=== PATIENT | female | born 1985 | race Caucasian/White ===

== ENCOUNTER 2016-07-16 18:25 | Outpatient (CLI) | payer OTHER ==
[~2016-07-16 18:25] MED LIST: ADVIL100 MG PO; BUPROBAN150 MG PO; CIPRO500 MG PO; DIAZEPAM10 MG PO; IBUPROFEN800 MG PO; LABETALOL HCL200 MG PO; LISINOPRIL-HCT1 EACH PO; LO-DOSE ASPIRIN81 M2 PO; MACROBID100 MG PO; MICROGESTIN1 EACH PO; NAPROXEN500 MG PO; NIFEDIPINE ER30 MG PO; NORCO 5/3251 TABLET PO; PRENATAL TABLE1 EACH PO; PROCARDIA XL30 MG PO; TYLENOL EXTRA500 MG PO; ULTRAM50 MG PO
[2016-07-16 18:52] VITALS: BP 147/94
[2016-07-16 19:11] VITALS: BP 132/83
[2016-07-16 19:26] VITALS: BP 131/82
[2016-07-16 19:41] VITALS: BP 132/79
[2016-07-16 19:56] VITALS: BP 122/78
[2016-07-16 20:11] VITALS: BP 119/77
[2016-07-16 21:06] LABS: ALKALINE PHOSPHATASE 39 IU/L (3-129); ANION GAP 7 MEQ/L (2-14); CHLORIDE 106 MEQ/L (99-109); GFR ESTIMATE (CALCULATED) > 59 mL/min/; GLUCOSE 73 mg/dL (70-99); POTASSIUM 3.6 MEQ/L (3.7-5.4); SAMPLE HEMOLYSIS CHECK 0; SAMPLE ICTERIC CHECK 0; SAMPLE LIPEMIA CHECK 0; SODIUM 136 MEQ/L (136-147); TOTAL BILIRUBIN 0.2 MG/DL (0.0-1.0); UREA NITROGEN (BUN) 6 mg/dL (9-23)
[2016-07-16 21:07] LABS: EOSINOPHIL (%) 0.7 % (0-5); HEMATOCRIT 32.3 % (36.0-46.0); IMMATURE GRANULOCYTE (%) 0.2 % (0.0-0.7); LYMPHOCYTE COUNT 1.1 K/uL (1.0-2.8); MCH 29.1 PG (29.0-34.0); MCHC 33.4 G/DL (30.0-36.0); MCV 87.1 FL (83-99); MEAN PLAT.VOLUME 9.9 uM^3 (9.5-12.4); MONOCYTE (%) 7.6 % (3-12); MONOCYTE COUNT 0.3 K/uL (0-0.8); NEUTROPHIL (%) 66.7 % (45-76); NEUTROPHIL COUNT 2.9 K/uL (1.8-6.4); PLATELET COUNT 147 K/uL (156-360); RBC DIS.WIDTH-CV 13.6 % (11.8-14.6); RBC DIS.WIDTH-SD 43.2 % (39-53); RED BLOOD COUNT 3.71 M/uL (3.80-5.20); WHITE BLOOD COUNT 4.4 K/uL (4.1-10.2)
[2016-07-16 21:35] LABS: HEMATOLOGY COMMENT 1 SMEAR COMPATIBLE; PLAT.SUFFICIENCY DECREASED
[2016-07-16] MEDS ORDERED: FIORICET,ESG1 TABLET PO (22:07)
== END 2016-07-16 22:25 | disposition home or self-care (01) ==
LOC: LDRP-OP 18:25 → 2WEST 18:26 → LDRP-OP 11-11 23:17
PROVIDERS: Advanced Practice Midwife
DX: R51 Headache (principal); O99.89 Other specified diseases and conditions complicating pregnancy, childbirth and the puerperium; Z3A.27 27 weeks gestation of pregnancy
CPT/HCPCS: 59025; 80053; 82570; 84156; 85025; G0378

== ENCOUNTER 2016-08-10 08:41 | Outpatient (CLI) | payer OTHER ==
[~2016-08-10 08:41] MED LIST changes: +FIORICET,ESG1 TABLET PO
[2016-08-10 08:58] VITALS: BP 133/90
[2016-08-10 09:37] VITALS: BP 119/82
[2016-08-10 10:23] LABS: EOSINOPHIL (%) 0.6 % (0-5); HEMATOCRIT 33.9 % (36.0-46.0); IMMATURE GRANULOCYTE (%) 0.2 % (0.0-0.7); IMMATURE GRANULOCYTE COUNT 0.1 K/uL; LYMPHOCYTE COUNT 1.1 K/uL (1.0-2.8); MCH 29.8 PG (29.0-34.0); MCHC 34.2 G/DL (30.0-36.0); MCV 87.1 FL (83-99); MEAN PLAT.VOLUME 10.2 uM^3 (9.5-12.4); MONOCYTE (%) 7.8 % (3-12); MONOCYTE COUNT 0.4 K/uL (0-0.8); NEUTROPHIL (%) 68.7 % (45-76); NEUTROPHIL COUNT 3.3 K/uL (1.8-6.4); PLATELET COUNT 163 K/uL (156-360); RBC DIS.WIDTH-CV 13.5 % (11.8-14.6); RBC DIS.WIDTH-SD 42.2 % (39-53); RED BLOOD COUNT 3.89 M/uL (3.80-5.20); WHITE BLOOD COUNT 4.8 K/uL (4.1-10.2)
[2016-08-10 10:35] VITALS: BP 124/83
[2016-08-10 11:01] LABS: UR CREATININE CONCENTRATION 25.5 MG/DL
[2016-08-10 11:37] VITALS: BP 123/80
[2016-08-10 11:47] LABS: ALKALINE PHOSPHATASE 43 IU/L (3-129); ANION GAP 10 MEQ/L (2-14); CHLORIDE 105 MEQ/L (99-109); GFR ESTIMATE (CALCULATED) > 59 mL/min/; GLUCOSE 77 mg/dL (70-99); LACTATE DEHYDROGENASE 140 IU/L (20-246); POTASSIUM 3.8 MEQ/L (3.7-5.4); SAMPLE HEMOLYSIS CHECK 0; SAMPLE ICTERIC CHECK 0; SAMPLE LIPEMIA CHECK 0; SODIUM 137 MEQ/L (136-147); TOTAL BILIRUBIN 0.3 MG/DL (0.0-1.0); UREA NITROGEN (BUN) 6 mg/dL (9-23)
[2016-08-10 12:34] VITALS: BP 124/82
== END 2016-08-10 14:00 | disposition home or self-care (01) ==
LOC: LDRP-OP 08:41 → 2WEST 08:42 → LDRP-OP 11-11 23:11
PROVIDERS: Advanced Practice Midwife
DX: R51 Headache (principal); O99.89 Other specified diseases and conditions complicating pregnancy, childbirth and the puerperium; Z3A.31 31 weeks gestation of pregnancy
CPT/HCPCS: 59025; 80053; 82570; 83615; 84156; 84550; 85025; 87086; G0378

== ENCOUNTER 2016-09-04 11:14 | Outpatient (CLI) | payer OTHER ==
[2016-09-04 11:28] VITALS: BP 139/100
[2016-09-04 11:46] VITALS: BP 139/97
[2016-09-04 12:25] LABS: EOSINOPHIL (%) 0.9 % (0-5); HEMATOCRIT 34.2 % (36.0-46.0); LYMPHOCYTE COUNT 0.8 K/uL (1.0-2.8); MCH 28.4 PG (29.0-34.0); MCHC 32.7 G/DL (30.0-36.0); MCV 86.8 FL (83-99); MEAN PLAT.VOLUME 10.1 uM^3 (9.5-12.4); MONOCYTE (%) 8.9 % (3-12); MONOCYTE COUNT 0.4 K/uL (0-0.8); NEUTROPHIL (%) 72.5 % (45-76); NEUTROPHIL COUNT 3.4 K/uL (1.8-6.4); PLATELET COUNT 144 K/uL (156-360); RBC DIS.WIDTH-CV 13.5 % (11.8-14.6); RBC DIS.WIDTH-SD 43.1 % (39-53); RED BLOOD COUNT 3.94 M/uL (3.80-5.20); WHITE BLOOD COUNT 4.7 K/uL (4.1-10.2)
[2016-09-04 12:38] VITALS: BP 133/94
[2016-09-04 12:45] LABS: ANION GAP 7 MEQ/L (2-14); CHLORIDE 106 MEQ/L (99-109); POTASSIUM 3.7 MEQ/L (3.7-5.4); SAMPLE HEMOLYSIS CHECK 0; SAMPLE ICTERIC CHECK 0; SAMPLE LIPEMIA CHECK 0; SODIUM 137 MEQ/L (136-147); TOTAL BILIRUBIN 0.3 MG/DL (0.0-1.0)
[2016-09-04 12:50] LABS: ALKALINE PHOSPHATASE 51 IU/L (3-129); GFR ESTIMATE (CALCULATED) > 59 mL/min/; GLUCOSE 87 mg/dL (70-99); LACTATE DEHYDROGENASE 119 IU/L (20-246); UREA NITROGEN (BUN) 7 mg/dL (9-23); URIC ACID 2.8 mg/dL (3.1-9.2)
[2016-09-04 13:08] LABS: BILIRUBIN NEGATIVE; BLOOD NEGATIVE; COLOR YELLOW ((YELLOW)); GLUCOSE (STRIP) NEGATIVE; KETONES NEGATIVE; LEUKOCYTES NEGATIVE; NITRITE NEGATIVE; PROTEIN (STRIP) NEGATIVE; SPECIFIC GRAVITY 1.014 (1.000-1.030); UROBILINOGEN 0.2 MG/DL (0.2-1.0)
[2016-09-04 13:11] LABS: ADD MIUA? NO; UCUL ADDED? NO
[2016-09-04 14:14] VITALS: BP 121/80
[2016-09-04 15:45] VITALS: BP 121/78
[2016-09-04 18:45] LABS: CANDIDA DNA PROBE NEGATIVE; GARDNERELLA DNA PROBE NEGATIVE; INTERNAL CONTROL VALID? YES
== END 2016-09-04 17:05 | disposition home or self-care (01) ==
LOC: LDRP-OP 11:14 → 2WEST 11:15 → LDRP-OP 11-04 14:11
PROVIDERS: Advanced Practice Midwife
DX: O26.893 Other specified pregnancy related conditions, third trimester (principal); R55 Syncope and collapse; Z3A.34 34 weeks gestation of pregnancy
CPT/HCPCS: 59025; 80053; 81003; 82570; 83615; 84156; 84550; 85025; 87086; 87480; 87510; 87660; G0378; J7120

== ENCOUNTER 2016-09-16 16:18 | Outpatient (CLI) | payer OTHER ==
[2016-09-16] VITALS (7 sets, daily range): BP systolic 129–140; BP diastolic 78–96
[~2016-09-16] VITALS: Ht 154.9 cm; Wt 69.9 kg
[2016-09-16 17:23] LABS: EOSINOPHIL (%) 0.5 % (0-5); HEMATOCRIT 35.4 % (36.0-46.0); IMMATURE GRANULOCYTE (%) 0.3 % (0.0-0.7); INSTRUMENT ABS NEUTROPHIL CT 3.7 K/uL; LYMPHOCYTE COUNT 1.4 K/uL (1.0-2.8); MCH 29.6 PG (29.0-34.0); MCHC 33.9 G/DL (30.0-36.0); MCV 87.4 FL (83-99); MEAN PLAT.VOLUME 10.6 uM^3 (9.5-12.4); MONOCYTE (%) 10.1 % (3-12); MONOCYTE COUNT 0.6 K/uL (0-0.8); NEUTROPHIL (%) 63.8 % (45-76); NEUTROPHIL COUNT 3.7 K/uL (1.8-6.4); PLATELET COUNT 174 K/uL (156-360); RBC DIS.WIDTH-CV 13.2 % (11.8-14.6); RBC DIS.WIDTH-SD 42.1 % (39-53); RED BLOOD COUNT 4.05 M/uL (3.80-5.20); WHITE BLOOD COUNT 5.7 K/uL (4.1-10.2)
[2016-09-16 17:37] LABS: ADD MIUA? NO; BILIRUBIN NEGATIVE; BLOOD NEGATIVE; COLOR YELLOW ((YELLOW)); GLUCOSE (STRIP) 150; KETONES NEGATIVE; LEUKOCYTES NEGATIVE; NITRITE NEGATIVE; PROTEIN (STRIP) NEGATIVE; SPECIFIC GRAVITY 1.009 (1.000-1.030); UCUL ADDED? NO; UROBILINOGEN 0.2 MG/DL (0.2-1.0)
[2016-09-16 17:38] LABS: ANION GAP 9 MEQ/L (2-14); CHLORIDE 106 MEQ/L (99-109); POTASSIUM 3.6 MEQ/L (3.7-5.4); SAMPLE HEMOLYSIS CHECK 0; SAMPLE ICTERIC CHECK 0; SAMPLE LIPEMIA CHECK 0; SODIUM 136 MEQ/L (136-147); TOTAL BILIRUBIN 0.2 MG/DL (0.0-1.0)
[2016-09-16 17:43] LABS: ALKALINE PHOSPHATASE 63 IU/L (3-129); GFR ESTIMATE (CALCULATED) > 59 mL/min/; GLUCOSE 82 mg/dL (70-99); LACTATE DEHYDROGENASE 123 IU/L (20-246); UREA NITROGEN (BUN) 7 mg/dL (9-23); URIC ACID 2.8 mg/dL (3.1-9.2)
[2016-09-16 17:51] LABS: UR CREATININE CONCENTRATION 42.6 MG/DL
== END 2016-09-16 19:45 | disposition home or self-care (01) ==
LOC: LDRP-OP 16:18 → 2WEST 16:19 → LDRP-OP 11-04 17:39
PROVIDERS: Advanced Practice Midwife
DX: O13.3 Gestational [pregnancy-induced] hypertension without significant proteinuria, third trimester (principal); O14.03 Mild to moderate pre-eclampsia, third trimester; Z3A.36 36 weeks gestation of pregnancy
CPT/HCPCS: 59025; 80053; 81003; 82570; 83615; 84156; 84550; 85025; G0378

== ENCOUNTER 2016-09-18 08:01 | Outpatient (CLI) | payer OTHER ==
[2016-09-18 08:14] VITALS: BP 145/97
[2016-09-18 08:47] LABS: EOSINOPHIL (%) 0.7 % (0-5); HEMATOCRIT 35.7 % (36.0-46.0); IMMATURE GRANULOCYTE (%) 0.2 % (0.0-0.7); MCH 29.6 PG (29.0-34.0); MCHC 33.9 G/DL (30.0-36.0); MCV 87.3 FL (83-99); MEAN PLAT.VOLUME 10.4 uM^3 (9.5-12.4); MONOCYTE COUNT 0.4 K/uL (0-0.8); NEUTROPHIL (%) 66.8 % (45-76); PLATELET COUNT 149 K/uL (156-360); RBC DIS.WIDTH-CV 13.4 % (11.8-14.6); RBC DIS.WIDTH-SD 42.9 % (39-53); RED BLOOD COUNT 4.09 M/uL (3.80-5.20); WHITE BLOOD COUNT 4.5 K/uL (4.1-10.2)
[2016-09-18 08:54] VITALS: BP 130/87
[2016-09-18 09:31] VITALS: BP 131/87
[2016-09-18 09:50] LABS: UR CREATININE CONCENTRATION 107.6 MG/DL
[2016-09-18 12:01] LABS: ALKALINE PHOSPHATASE 66 IU/L (3-129); ANION GAP 8 MEQ/L (2-14); CHLORIDE 104 MEQ/L (99-109); GFR ESTIMATE (CALCULATED) > 59 mL/min/; GLUCOSE 83 mg/dL (70-99); LACTATE DEHYDROGENASE 123 IU/L (20-246); POTASSIUM 3.5 MEQ/L (3.7-5.4); SAMPLE HEMOLYSIS CHECK 0; SAMPLE ICTERIC CHECK 0; SAMPLE LIPEMIA CHECK 0; SODIUM 135 MEQ/L (136-147); UREA NITROGEN (BUN) 7 mg/dL (9-23); URIC ACID 3.3 mg/dL (3.1-9.2)
[2016-09-18 12:11] LABS: TOTAL BILIRUBIN 0.3 MG/DL (0.0-1.0)
[2016-09-18 12:47] VITALS: BP 153/89
[2016-09-18 15:06] VITALS: BP 143/89
== END 2016-09-18 17:10 | disposition home or self-care (01) ==
LOC: LDRP-OP 08:01 → 2WEST 08:02 → LDRP-OP 13:34 → 2WEST 17:10 → LDRP-OP 11-04 20:01
PROVIDERS: Advanced Practice Midwife
DX: O13.3 Gestational [pregnancy-induced] hypertension without significant proteinuria, third trimester (principal); O26.893 Other specified pregnancy related conditions, third trimester; R51 Headache; H43.399 Other vitreous opacities, unspecified eye; Z3A.36 36 weeks gestation of pregnancy
CPT/HCPCS: 59025; 76805; 76818; 80053; 80306 90; 81050; 82570; 83615; 84156; 84550; 85025; G0378; J7120

== ENCOUNTER 2016-09-23 06:50 | Inpatient (IN) | payer OTHER ==
[~2016-09-23] VITALS: Ht 154.9 cm; Wt 69.8 kg
[2016-09-23] VITALS (17 sets, daily range): BP systolic 118–160; BP diastolic 74–103
[2016-09-23 08:05] LABS: EOSINOPHIL (%) 0.8 % (0-5); HEMATOCRIT 34.8 % (36.0-46.0); IMMATURE GRANULOCYTE (%) 0.2 % (0.0-0.7); INSTRUMENT ABS NEUTROPHIL CT 3.3 K/uL; LYMPHOCYTE COUNT 1.1 K/uL (1.0-2.8); MCH 29.5 PG (29.0-34.0); MCHC 33.9 G/DL (30.0-36.0); MEAN PLAT.VOLUME 10.5 uM^3 (9.5-12.4); MONOCYTE (%) 8.1 % (3-12); MONOCYTE COUNT 0.4 K/uL (0-0.8); NEUTROPHIL (%) 67.8 % (45-76); NEUTROPHIL COUNT 3.3 K/uL (1.8-6.4); PLATELET COUNT 157 K/uL (156-360); RBC DIS.WIDTH-CV 13.3 % (11.8-14.6); RBC DIS.WIDTH-SD 42.4 % (39-53); WHITE BLOOD COUNT 4.8 K/uL (4.1-10.2)
[2016-09-23 08:28] LABS: ANION GAP 8 MEQ/L (2-14); CHLORIDE 105 MEQ/L (99-109); POTASSIUM 3.7 MEQ/L (3.7-5.4); SAMPLE HEMOLYSIS CHECK 0; SAMPLE ICTERIC CHECK 0; SAMPLE LIPEMIA CHECK 0; SODIUM 136 MEQ/L (136-147); TOTAL BILIRUBIN 0.3 MG/DL (0.0-1.0)
[2016-09-23 08:34] LABS: ALKALINE PHOSPHATASE 64 IU/L (3-129); GFR ESTIMATE (CALCULATED) > 59 mL/min/; GLUCOSE 85 mg/dL (70-99); UREA NITROGEN (BUN) 8 mg/dL (9-23)
[2016-09-23 08:47] LABS: POINT-OF-CARE METER ID UU13113801
[2016-09-23 12:06] LABS: UR CREATININE CONCENTRATION 81.8 MG/DL
[2016-09-24] VITALS (40 sets, daily range): BP systolic 118–150; BP diastolic 78–98
[2016-09-24 18:42] LABS: POINT-OF-CARE METER ID UU13113801
[2016-09-24 18:43] LABS: EOSINOPHIL (%) 0.2 % (0-5); HEMATOCRIT 30.7 % (36.0-46.0); IMMATURE GRANULOCYTE (%) 0.5 % (0.0-0.7); INSTRUMENT ABS NEUTROPHIL CT 4.7 K/uL; LYMPHOCYTE COUNT 1.1 K/uL (1.0-2.8); MCH 30.3 PG (29.0-34.0); MCHC 34.2 G/DL (30.0-36.0); MCV 88.5 FL (83-99); MEAN PLAT.VOLUME 10.1 uM^3 (9.5-12.4); MONOCYTE (%) 5.2 % (3-12); MONOCYTE COUNT 0.3 K/uL (0-0.8); NEUTROPHIL COUNT 4.7 K/uL (1.8-6.4); PLATELET COUNT 139 K/uL (156-360); RBC DIS.WIDTH-CV 13.3 % (11.8-14.6); RED BLOOD COUNT 3.47 M/uL (3.80-5.20); WHITE BLOOD COUNT 6.2 K/uL (4.1-10.2)
[2016-09-25] VITALS (7 sets, daily range): BP systolic 125–151; BP diastolic 65–97
[2016-09-25 06:49] LABS: EOSINOPHIL (%) 1.1 % (0-5); EOSINOPHIL COUNT 0.1 K/uL (0-0.3); HEMATOCRIT 24.5 % (36.0-46.0); IMMATURE GRANULOCYTE (%) 0.5 % (0.0-0.7); INSTRUMENT ABS NEUTROPHIL CT 3.1 K/uL; LYMPHOCYTE COUNT 0.9 K/uL (1.0-2.8); MCH 29.5 PG (29.0-34.0); MCHC 33.5 G/DL (30.0-36.0); MCV 88.1 FL (83-99); MEAN PLAT.VOLUME 10.8 uM^3 (9.5-12.4); MONOCYTE (%) 7.9 % (3-12); MONOCYTE COUNT 0.4 K/uL (0-0.8); NEUTROPHIL (%) 69.4 % (45-76); NEUTROPHIL COUNT 3.1 K/uL (1.8-6.4); PLATELET COUNT 131 K/uL (156-360); RBC DIS.WIDTH-CV 13.3 % (11.8-14.6); RBC DIS.WIDTH-SD 43.1 % (39-53); RED BLOOD COUNT 2.78 M/uL (3.80-5.20); WHITE BLOOD COUNT 4.4 K/uL (4.1-10.2)
[2016-09-25 16:18] LABS: EOSINOPHIL (%) 1.2 % (0-5); EOSINOPHIL COUNT 0.1 K/uL (0-0.3); HEMATOCRIT 28.6 % (36.0-46.0); IMMATURE GRANULOCYTE (%) 0.2 % (0.0-0.7); INSTRUMENT ABS NEUTROPHIL CT 2.8 K/uL; LYMPHOCYTE COUNT 1.1 K/uL (1.0-2.8); MCH 29.8 PG (29.0-34.0); MCHC 33.9 G/DL (30.0-36.0); MEAN PLAT.VOLUME 10.5 uM^3 (9.5-12.4); MONOCYTE (%) 6.8 % (3-12); MONOCYTE COUNT 0.3 K/uL (0-0.8); NEUTROPHIL (%) 66.2 % (45-76); NEUTROPHIL COUNT 2.8 K/uL (1.8-6.4); PLATELET COUNT 143 K/uL (156-360); RBC DIS.WIDTH-CV 13.3 % (11.8-14.6); RBC DIS.WIDTH-SD 42.8 % (39-53); RED BLOOD COUNT 3.25 M/uL (3.80-5.20); WHITE BLOOD COUNT 4.3 K/uL (4.1-10.2)
[2016-09-26 06:01] VITALS: BP 125/91
[2016-09-26 06:20] LABS: POINT-OF-CARE METER ID UU13113801
[2016-09-26 07:34] LABS: EOSINOPHIL (%) 1.5 % (0-5); EOSINOPHIL COUNT 0.1 K/uL (0-0.3); HEMATOCRIT 30.8 % (36.0-46.0); IMMATURE GRANULOCYTE (%) 0.2 % (0.0-0.7); INSTRUMENT ABS NEUTROPHIL CT 2.7 K/uL; MCH 29.3 PG (29.0-34.0); MCHC 33.1 G/DL (30.0-36.0); MCV 88.5 FL (83-99); MEAN PLAT.VOLUME 10.3 uM^3 (9.5-12.4); MONOCYTE (%) 7.9 % (3-12); MONOCYTE COUNT 0.3 K/uL (0-0.8); NEUTROPHIL (%) 66.7 % (45-76); NEUTROPHIL COUNT 2.7 K/uL (1.8-6.4); PLATELET COUNT 127 K/uL (156-360); RBC DIS.WIDTH-CV 13.4 % (11.8-14.6); RBC DIS.WIDTH-SD 43.3 % (39-53); RED BLOOD COUNT 3.48 M/uL (3.80-5.20)
[2016-09-26 07:54] VITALS: BP 136/97
[2016-09-26] MEDS ORDERED: IBUPROFEN800 MG PO (08:51)
[2016-09-26] MEDS ORDERED: ENDOCET 5-3251 EACH PO (08:51)
== END 2016-09-26 10:30 | disposition home or self-care (01) | DRG 775 ==
LOC: LDRP-OP 06:50 → 2WEST 06:51 → LDRP-OP 09:28 → 2WEST 09-24 15:34 → LDRP-OP 11-04 19:51
PROVIDERS: Advanced Practice Midwife; Obstetrics & Gynecology; Obstetrics & Gynecology Obstetrics
PROC: 3E0P7GC Introduction of Other Therapeutic Substance into Female Reproductive, Via Natural or Artificial Opening (ICD-10-PCS; 2016-09-23)
PROC: 3E0S3BZ Introduction of Anesthetic Agent into Epidural Space, Percutaneous Approach (ICD-10-PCS; 2016-09-23)
PROC: 10E0XZZ Delivery of Products of Conception, External Approach (ICD-10-PCS; principal; 2016-09-24)
PROC: 10907ZC Drainage of Amniotic Fluid, Therapeutic from Products of Conception, Via Natural or Artificial Opening (ICD-10-PCS; 2016-09-24)
DX: O13.4 Gestational [pregnancy-induced] hypertension without significant proteinuria, complicating childbirth (principal); D62 Acute posthemorrhagic anemia; Z37.0 Single live birth; Z3A.37 37 weeks gestation of pregnancy; O99.02 Anemia complicating childbirth; O24.420 Gestational diabetes mellitus in childbirth, diet controlled; N89.8 Other specified noninflammatory disorders of vagina; O26.899 Other specified pregnancy related conditions, unspecified trimester; O24.425 Gestational diabetes mellitus in childbirth, controlled by oral hypoglycemic drugs; R55 Syncope and collapse; R51 Headache; O75.89 Other specified complications of labor and delivery; Z79.84 Long term (current) use of oral hypoglycemic drugs
CPT/HCPCS: 76856; 80053; 82570; 82948; 84156; 85025; 85025 91; 86850; 86900; 86901; C1755; G0378; J0595; J1050; J2405; J3010; J7120

== ENCOUNTER 2016-10-04 17:08 | Emergency (ER) | payer OTHER ==
[~2016-10-04] VITALS: Ht 154.9 cm; Wt 65.0 kg
[~2016-10-04 17:08] MED LIST changes: +ENDOCET 5-3251 EACH PO
[2016-10-04 17:11] VITALS: BP 165/117
== END 2016-10-04 19:00 | disposition left against medical advice (07) ==
LOC: EME 17:08
DX: N93.9 Abnormal uterine and vaginal bleeding, unspecified (principal); Z53.21 Procedure and treatment not carried out due to patient leaving prior to being seen by health care provider
CPT/HCPCS: 80048; 84702; 85027; 86850; 86900; 86901

== ENCOUNTER 2016-11-09 15:17 | Emergency (ER) | payer OTHER ==
[~2016-11-09] VITALS: Ht 154.9 cm; Wt 93.4 kg
[2016-11-09 16:22] LABS: ADD MIUA? YES; BILIRUBIN NEGATIVE; BLOOD NEGATIVE; COLOR YELLOW ((YELLOW)); GLUCOSE (STRIP) NEGATIVE; KETONES 20; LEUKOCYTES SMALL; NITRITE NEGATIVE; PROTEIN (STRIP) 30; SPECIFIC GRAVITY 1.019 (1.000-1.030); UROBILINOGEN 0.2 MG/DL (0.2-1.0)
[2016-11-09 16:53] LABS: MCH 27.9 PG (29.0-34.0); MCHC 33.2 G/DL (30.0-36.0); MCV 84.3 FL (83-99); MEAN PLAT.VOLUME 9.7 uM^3 (9.5-12.4); PLATELET COUNT 182 K/uL (156-360); RBC DIS.WIDTH-CV 12.3 % (11.8-14.6); RBC DIS.WIDTH-SD 37.6 % (39-53); RED BLOOD COUNT 4.51 M/uL (3.80-5.20); WHITE BLOOD COUNT 3.5 K/uL (4.1-10.2)
[2016-11-09 16:59] LABS: BACTERIA NONE SEEN /HPF; EPITHELIAL CELLS RARE /HPF; MUCUS TRACE /LPF; RED BLOOD CELLS 0-5 /HPF (0-5); WHITE BLOOD CELLS 0-5 /HPF (0-5)
[2016-11-09 17:00] LABS: CHLORIDE 108 mEq/L (99-109); POTASSIUM 3.9 mEq/L (3.7-5.4); SODIUM 141 mEq/L (136-147)
[2016-11-09 17:02] LABS: GLUCOSE 86 mg/dL (70-99)
[2016-11-09 17:03] LABS: ANION GAP 9 MEQ/L (2-14)
[2016-11-09 17:04] LABS: TOTAL BILIRUBIN 0.5 mg/dL (0.0-1.0)
[2016-11-09 17:05] LABS: ALKALINE PHOSPHATASE 39 IU/L (3-129); GFR ESTIMATE (CALCULATED) > 59 mL/min/
[2016-11-09 17:07] LABS: UREA NITROGEN (BUN) 11 mg/dL (9-23)
[2016-11-09 17:09] LABS: LIPASE 23 U/L (1.0-51.0)
[2016-11-09 17:18] LABS: QUANTITATIVE HCG < 4.0 MIU/ML
[2016-11-09] MEDS ORDERED: BENTYL20 MG PO (19:48)
[2016-11-09] MEDS ORDERED: NAPROSYN500 MG PO (19:48)
[2016-11-09] MEDS ORDERED: ZOFRAN ODT4 MG PO (19:48)
[2016-11-09 20:00] VITALS: BP 151/101
== END 2016-11-09 20:02 | disposition home or self-care (01) ==
LOC: EME 15:17
PROVIDERS: Nurse Practitioner Family
DX: R10.31 Right lower quadrant pain (principal); Z87.442 Personal history of urinary calculi
CPT/HCPCS: 74177; 80053; 81003; 83690; 84702; 85027; 99281; 99284; J1885; J2405; J3010; J7030

== ENCOUNTER 2017-01-23 11:32 | Day surgery (SDC) | payer OTHER ==
[~2017-01-23] VITALS: Ht 154.9 cm; Wt 63.5 kg
[~2017-01-23 11:32] MED LIST changes: +BENTYL20 MG PO; +DEPO-PROVER150 MG/ML IM; +NAPROSYN500 MG PO; +VALIUM10 MG PO; +ZOFRAN ODT4 MG PO
[2017-01-23 12:11] VITALS: BP 132/93
[2017-01-23] MEDS ORDERED: ENDOCET 5-3251 EACH PO (14:22)
[2017-01-23 15:15] VITALS: BP 142/80
[2017-01-23 16:00] VITALS: BP 147/100; BP 158/98
== END 2017-01-23 16:05 | disposition home or self-care (01) ==
LOC: SDC
DX: Z30.2 Encounter for sterilization (principal); N89.8 Other specified noninflammatory disorders of vagina; F41.1 Generalized anxiety disorder
CPT/HCPCS: 93005; J1170; J1885; J2250; J2710; J2765; J3010; S0020

== ENCOUNTER 2017-04-15 09:20 | Emergency (ER) | payer OTHER ==
[~2017-04-15] VITALS: Ht 154.9 cm; Wt 62.2 kg
[2017-04-15 09:50] VITALS: BP 159/112
[2017-04-15] MEDS ORDERED: PREDNISONE10 MG PO (11:11)
[2017-04-15] MEDS ORDERED: LIDODERM 5% P1 PATCH TD (11:11)
[2017-04-15] MEDS ORDERED: TRAMADOL HCL50 MG PO (11:18)
== END 2017-04-15 11:22 | disposition home or self-care (01) ==
LOC: EME 09:20
DX: M54.41 Lumbago with sciatica, right side (principal); S30.810A Abrasion of lower back and pelvis, initial encounter; W10.9XXA Fall (on) (from) unspecified stairs and steps, initial encounter; Y92.008 Other place in unspecified non-institutional (private) residence as the place of occurrence of the external cause; F41.9 Anxiety disorder, unspecified
CPT/HCPCS: 72220; 99281; 99284; J7512

== ENCOUNTER 2017-07-28 14:11 | Emergency (ER) | payer OTHER ==
[~2017-07-28] VITALS: Ht 154.9 cm; Wt 60.3 kg
[~2017-07-28 14:11] MED LIST changes: +LIDODERM 5% P1 PATCH TD; +PREDNISONE10 MG PO; +TRAMADOL HCL50 MG PO
[2017-07-28 14:14] VITALS: BP 145/100
[2017-07-28] MEDS ORDERED: ULTRAM50 MG PO (15:49)
== END 2017-07-28 15:59 | disposition home or self-care (01) ==
LOC: EME 14:11
DX: H60.92 Unspecified otitis externa, left ear (principal)
CPT/HCPCS: 99281; 99283

== ENCOUNTER 2017-09-22 14:28 | Emergency (ER) | payer OTHER ==
[~2017-09-22] VITALS: Ht 154.9 cm; Wt 59.1 kg
[2017-09-22 14:56] LABS: HEMATOCRIT 39.3 % (36.0-46.0); HEMOGLOBIN 13.7 G/DL (11.9-15.5); MCH 29.9 PG (29.0-34.0); MCHC 34.9 G/DL (30.0-36.0); MCV 85.8 FL (83-99); PLATELET COUNT 184 K/uL (156-360); RBC DIS.WIDTH-CV 11.9 % (11.8-14.6); RBC DIS.WIDTH-SD 37.6 % (39-53); RED BLOOD COUNT 4.58 M/uL (3.80-5.20); WHITE BLOOD COUNT 4.1 K/uL (4.1-10.2)
[2017-09-22 15:07] LABS: ALBUMIN 4.5 g/dL (3.2-4.8)
[2017-09-22 15:08] LABS: CHLORIDE 104 mEq/L (99-109); POTASSIUM 3.8 mEq/L (3.7-5.4); SODIUM 141 mEq/L (136-147)
[2017-09-22 15:10] LABS: GLUCOSE 117 mg/dL (70-99); TOTAL PROTEIN 7.6 g/dL (6.4-8.3)
[2017-09-22 15:12] LABS: TOTAL BILIRUBIN 0.4 mg/dL (0.0-1.0)
[2017-09-22 15:13] LABS: ALKALINE PHOSPHATASE 46 IU/L (3-129)
[2017-09-22 15:14] LABS: CREATININE 0.6 mg/dL (0.6-1.3); GFR ESTIMATE (CALCULATED) > 59 mL/min/
[2017-09-22 15:15] LABS: AST (GOT) 15 IU/L (2-34); UREA NITROGEN (BUN) 13 mg/dL (9-23)
[2017-09-22 15:16] LABS: ALT (GPT) 11 IU/L (3-49)
[2017-09-22 15:25] LABS: QUANTITATIVE HCG < 4.0 MIU/ML
[2017-09-22 16:05] LABS: APPEARANCE SL.HAZY ((CLEAR)); BILIRUBIN NEGATIVE; BLOOD NEGATIVE; COLOR YELLOW ((YELLOW)); GLUCOSE (STRIP) NEGATIVE; KETONES NEGATIVE; LEUKOCYTES SMALL; NITRITE NEGATIVE; PROTEIN (STRIP) 100; SPECIFIC GRAVITY 1.027 (1.000-1.030)
[2017-09-22 16:11] LABS: BACTERIA NONE SEEN /HPF; EPITHELIAL CELLS 2+ /HPF; MUCUS TRACE /LPF; RED BLOOD CELLS 0-5 /HPF (0-5); UCUL ADDED? NO; WHITE BLOOD CELLS 0-5 /HPF (0-5)
[2017-09-22] MEDS ORDERED: ZOFRAN4 MG PO (20:23)
[2017-09-22 20:32] VITALS: BP 142/95
== END 2017-09-22 20:34 | disposition home or self-care (01) ==
LOC: EME 14:28
DX: R10.30 Lower abdominal pain, unspecified (principal); R11.10 Vomiting, unspecified; Z88.6 Allergy status to analgesic agent; E11.9 Type 2 diabetes mellitus without complications; F32.9 Major depressive disorder, single episode, unspecified; F41.9 Anxiety disorder, unspecified; N83.202 Unspecified ovarian cyst, left side
CPT/HCPCS: 74177; 76856; 80053; 81003; 84702; 85027; 99281; 99284; J1885; J2270; J2405; J7030

== ENCOUNTER 2017-11-13 10:07 | Emergency (ER) | payer OTHER ==
[~2017-11-13] VITALS: Ht 154.9 cm; Wt 57.3 kg
[~2017-11-13 10:07] MED LIST changes: +ZOFRAN4 MG PO
[2017-11-13 13:07] LABS: APPEARANCE CLOUDY ((CLEAR)); BILIRUBIN NEGATIVE; BLOOD LARGE; COLOR YELLOW ((YELLOW)); GLUCOSE (STRIP) NEGATIVE; KETONES NEGATIVE; LEUKOCYTES LARGE; NITRITE NEGATIVE; PROTEIN (STRIP) 30; SPECIFIC GRAVITY 1.008 (1.000-1.030); UROBILINOGEN 0.2 MG/DL (0.2-1.0)
[2017-11-13 13:09] LABS: HEMATOCRIT 39.3 % (36.0-46.0); HEMOGLOBIN 13.7 G/DL (11.9-15.5); MCHC 34.9 G/DL (30.0-36.0); PLATELET COUNT 182 K/uL (156-360); RBC DIS.WIDTH-CV 12.3 % (11.8-14.6); RBC DIS.WIDTH-SD 38.5 % (39-53); RED BLOOD COUNT 4.57 M/uL (3.80-5.20); WHITE BLOOD COUNT 2.7 K/uL (4.1-10.2)
[2017-11-13 13:17] LABS: ALBUMIN 4.9 g/dL (3.2-4.8); CHLORIDE 102 mEq/L (99-109); POTASSIUM 4.2 mEq/L (3.7-5.4); SODIUM 137 mEq/L (136-147)
[2017-11-13 13:19] LABS: GLUCOSE 87 mg/dL (70-99)
[2017-11-13 13:21] LABS: TOTAL BILIRUBIN 0.5 mg/dL (0.0-1.0)
[2017-11-13 13:23] LABS: ALKALINE PHOSPHATASE 44 IU/L (3-129); CREATININE 0.7 mg/dL (0.6-1.3); GFR ESTIMATE (CALCULATED) > 59 mL/min/
[2017-11-13 13:24] LABS: UREA NITROGEN (BUN) 9 mg/dL (9-23)
[2017-11-13 13:25] LABS: AST (GOT) 15 IU/L (2-34)
[2017-11-13 13:26] LABS: ALT (GPT) 14 IU/L (3-49)
[2017-11-13 13:32] LABS: QUANTITATIVE HCG < 4.0 MIU/ML
[2017-11-13 13:54] LABS: EPITHELIAL CELLS 2+ /HPF; RED BLOOD CELLS TNTC /HPF (0-5); WHITE BLOOD CELLS TNTC /HPF (0-5)
[2017-11-13 13:55] LABS: BACTERIA 2+ /HPF; MUCUS NONE SEEN /LPF; UCUL ADDED? YES
[2017-11-13] MEDS ORDERED: AUGMENTIN875 MG PO (14:22)
[2017-11-13] MEDS ORDERED: ULTRAM50 MG PO (14:22)
[2017-11-13] MEDS ORDERED: ZOFRAN ODT4 MG PO (14:22)
[2017-11-13 14:48] VITALS: BP 158/112
== END 2017-11-13 14:51 | disposition home or self-care (01) ==
LOC: EME 10:07
PROVIDERS: Physician Assistant
DX: N20.0 Calculus of kidney (principal); M43.06 Spondylolysis, lumbar region; E11.9 Type 2 diabetes mellitus without complications; F41.9 Anxiety disorder, unspecified; Z86.79 Personal history of other diseases of the circulatory system; Z88.6 Allergy status to analgesic agent
CPT/HCPCS: 74176; 80053; 81003; 84702; 85027; 87086; 99281; 99284

== ENCOUNTER 2017-12-26 07:41 | Day surgery (SDC) | payer OTHER ==
[~2017-12-26] VITALS: Ht 154.9 cm; Wt 55.3 kg
[~2017-12-26 07:41] MED LIST changes: +AUGMENTIN875 MG PO
[2017-12-26 08:22] VITALS: BP 142/89
[2017-12-26 08:27] LABS: BASOPHIL (%) 0.3 % (0-1); EOSINOPHIL (%) 2.1 % (0-5); EOSINOPHIL COUNT 0.1 K/uL (0-0.3); HEMATOCRIT 36.5 % (36.0-46.0); HEMOGLOBIN 12.9 G/DL (11.9-15.5); LYMPHOCYTE COUNT 1.1 K/uL (1.0-2.8); MCH 29.9 PG (29.0-34.0); MCHC 35.3 G/DL (30.0-36.0); MCV 84.7 FL (83-99); MONOCYTE (%) 7.2 % (3-12); MONOCYTE COUNT 0.2 K/uL (0-0.8); NEUTROPHIL (%) 53.4 % (45-76); NEUTROPHIL COUNT 1.6 K/uL (1.8-6.4); PLATELET COUNT 160 K/uL (156-360); RBC DIS.WIDTH-CV 12.5 % (11.8-14.6); RBC DIS.WIDTH-SD 38.4 % (39-53); RED BLOOD COUNT 4.31 M/uL (3.80-5.20); WHITE BLOOD COUNT 2.9 K/uL (4.1-10.2)
[2017-12-26] MEDS ORDERED: ENDOCET 5-3251 EACH PO (10:52)
[2017-12-26 12:18] VITALS: BP 138/70
[2017-12-26 13:16] VITALS: BP 133/90
== END 2017-12-26 13:15 | disposition home or self-care (01) ==
LOC: SDC 07:41
PROVIDERS: Obstetrics & Gynecology Obstetrics
PROC: 0UDB8ZX Extraction of Endometrium, Via Natural or Artificial Opening Endoscopic, Diagnostic (ICD-10-PCS; principal; 2017-12-26)
PROC: 0U5B8ZZ Destruction of Endometrium, Via Natural or Artificial Opening Endoscopic (ICD-10-PCS; principal; 2017-12-26)
DX: N92.0 Excessive and frequent menstruation with regular cycle (principal); Z86.001 Personal history of in-situ neoplasm of cervix uteri; Z98.51 Tubal ligation status; Z81.8 Family history of other mental and behavioral disorders; Z83.3 Family history of diabetes mellitus; Z80.49 Family history of malignant neoplasm of other genital organs; Z82.49 Family history of ischemic heart disease and other diseases of the circulatory system; Z88.8 Allergy status to other drugs, medicaments and biological substances
CPT/HCPCS: 84702; 85025; 86850; 86900; 86901; 88305; 93005; J1100; J1170; J1885; J2250; J2405; J3010

== ENCOUNTER 2018-01-07 13:06 | Emergency (ER) | payer OTHER ==
[~2018-01-07] VITALS: Ht 154.9 cm; Wt 53.2 kg
[2018-01-07] MEDS ORDERED: LIDODERM 5% P1 PATCH TD (15:29)
[2018-01-07] MEDS ORDERED: MEDROL DOSEPAK4 MG PO (15:29)
[2018-01-07 15:56] VITALS: BP 132/111
== END 2018-01-07 15:56 | disposition home or self-care (01) ==
LOC: EME 13:06
DX: M54.41 Lumbago with sciatica, right side (principal); Z88.6 Allergy status to analgesic agent
CPT/HCPCS: 99281; 99283; J1100

== ENCOUNTER 2018-01-09 10:41 | Emergency (ER) | payer OTHER ==
[~2018-01-09] VITALS: Ht 154.9 cm; Wt 55.8 kg
[~2018-01-09 10:41] MED LIST changes: +MEDROL DOSEPAK4 MG PO
[2018-01-09 13:52] LABS: APPEARANCE CLEAR ((CLEAR)); BILIRUBIN NEGATIVE; BLOOD NEGATIVE; COLOR STRAW ((YELLOW)); GLUCOSE (STRIP) NEGATIVE; KETONES NEGATIVE; LEUKOCYTES NEGATIVE; NITRITE NEGATIVE; PROTEIN (STRIP) NEGATIVE; SPECIFIC GRAVITY 1.009 (1.000-1.030); UCUL ADDED? NO; UROBILINOGEN 0.2 MG/DL (0.2-1.0)
[2018-01-09] MEDS ORDERED: LIDODERM 5% P1 PATCH TD (14:08)
[2018-01-09] MEDS ORDERED: BACLOFEN10 MG PO (14:08)
[2018-01-09] MEDS ORDERED: VOLTAREN 1% GE100 GM TP (14:08)
[2018-01-09 14:16] VITALS: BP 127/102
== END 2018-01-09 14:18 | disposition home or self-care (01) ==
LOC: EME 10:41
PROVIDERS: Nurse Practitioner Family
DX: M54.41 Lumbago with sciatica, right side (principal); M25.551 Pain in right hip; W10.9XXA Fall (on) (from) unspecified stairs and steps, initial encounter; M43.08 Spondylolysis, sacral and sacrococcygeal region
CPT/HCPCS: 72100; 81003; 81025; 99281; 99284; J1885